=== PATIENT | female | born 1950 | race Two or more races ===

== ENCOUNTER → 2018-01-22 10:09 | Outpatient (CLI) | payer OTHER, BC | END | disposition home or self-care (01) | LOC: EKG 10:09 | DX: I10 Essential (primary) hypertension (principal); R07.89 Other chest pain; R00.2 Palpitations ==

== ENCOUNTER 2018-01-23 10:42 | Outpatient (CLI) | payer OTHER, BC | END 2018-01-23 10:48 | disposition home or self-care (01) | LOC: MAMO-SONO 10:42 | DX: Z12.31 Encounter for screening mammogram for malignant neoplasm of breast (principal); Z87.898 Personal history of other specified conditions; C50.912 Malignant neoplasm of unspecified site of left female breast; C50.911 Malignant neoplasm of unspecified site of right female breast ==

== ENCOUNTER 2018-01-26 13:22 | Outpatient (CLI) | payer OTHER, BC | END 2018-01-26 13:25 | disposition home or self-care (01) | LOC: SONOGRAMA 13:22 | DX: E04.8 Other specified nontoxic goiter (principal); E03.8 Other specified hypothyroidism; R74.0 Nonspecific elevation of levels of transaminase and lactic acid dehydrogenase [LDH] ==